=== PATIENT | female | born 1955 | race Hispanic/Latino ===

== ENCOUNTER 2018-03-07 13:40 | Emergency (ER) | payer OTHER ==
[2018-03-07] MEDS ORDERED: LIDOCAINE HCL 1% 20 ML VIAL ONE (14:34)
[2018-03-07] MEDS ORDERED: BUPIVACAINE/PF 0.5% 30ML VIAL ONE (14:34)
[2018-03-07] MEDS ORDERED: ONDANSETRON ODT 4 MG TAB ONE (14:35)
[2018-03-07] MEDS ORDERED: MORPHINE SULFATE 8 MG/ML VIAL ONE (14:35)
== END 2018-03-07 15:47 | disposition home or self-care (01) ==
LOC: EDH 13:40
DX: S52.591A Other fractures of lower end of right radius, initial encounter for closed fracture (principal); W18.39XA Other fall on same level, initial encounter; Y93.89 Activity, other specified; Y92.098 Other place in other non-institutional residence as the place of occurrence of the external cause; Y99.8 Other external cause status
CPT/HCPCS: 25605; 73100; 73110; 96372; 99284; J2270; J3490

== ENCOUNTER → 2018-10-07 | Outpatient (CLI) | payer OTHER ==
--- NOTE | 2018-10-07 12:07 | NUR ---
MBSS COMPLETE. -S/S OF ASPIRATION. RECOMMEND REGULAR, THIN LIQUID DIET; PILLS WHOLE WITH LIQUIDS. ENT AND GI CONSULT RECOMMENDED. PATIENT INFORMATION: Pt IS A 63 Y.O. FEMALE REFERRED FOR AN MBSS SECONDARY TO C/O DIFFICULTY SWALLOWING LIQUIDS WITH COUGHING DURING MEAL TIMES. Pt REPORTS THAT SHE FEELS SOMETHING STUCK IN HER THROAT WHEN SHE EATS. Pt WAS NOTED TO HAVE HOARSE VOCAL QUALITY DURING THE EVALUATION. Pt REPORTS THAT PEOPLE HAVE A DIFFICULT TIME UNDERSTANDING HER. VOCAL INTENSITY WAS ALSO NOTED TO BE LOW. ENT CONSULT RECOMMENDED. Pt REPORTS NO SIGNIFICANT MEDICAL HISTORY AT THIS TIME. MBSS INTERPRETATION: SWALLOW FUNCTION AND EFFICIENCY WITHIN FUNCTIONAL LIMITS. ORAL MOTOR STRENGTH, COORDINATION, AND ROM WITHIN FUNCTIONAL LIMITS. LARYNGEAL ELEVATION/EXCURSION STRONG WITH TIMELY PHARYNGEAL RESPONSE. NO OVERT SIGNS OR SYMPTOMS OF ASPIRATION PRESENT DURING THE MBSS. OBSERVATION: OPAQUE AREA IN UPPER AIRWAY. A-P VIEW: Pt WITH OBVIOUS BOLUS REFLUX IN THE MID AND LOWER 1/3 PORTIONS OF TH ESOPHAGUS. Pt WITH COUGH RESPONSE AFTER THE SWALLOW. GI CONSULT RECOMMENDED. TRIALS: 1. TSP PUREED: GOOD 2. TSP PUDDING: GOOD 3. MIXED TEXTURE: GOOD 4. THIN LIQUIDS VIA CONSECUTIVE CUP SIP: GOOD 5. THIN LIQUIDS VIA CONSECUTIVE CUP SIP: GOOD 6. A-P PUDDING: OBSERVATIONS DESCRIBED ABOVE. RECOMMENDATIONS: 1. REGULAR TEXTURE, THIN LIQUID DIET; PILLS WHOLE WITH LIQUIDS. 2. COMPENSATORY STRATEGIES (PROPHYLAXIS): *SEATED AT 90 DEGREE ANGLE *REMAIN UPRIGHT 30 MINUTES AFTER MEAL TIMES 3. GI CONSULT DUE TO REFLUX OF BOLUS DURING MBSS 4. ENT CONSULT SECONDARY TO CHANGE IN VOCAL QUALITY. Pt PROVIDED WITH WRITTEN HANDOUT OF RESULTS AND RECOMMENDATIONS. ALL QUESTIONS ANSWERED AT THIS TIME. PT VERBALIZED UNDERSTANDING AND COMPLIANCE WITH RECOMMENDATIONS. G-CODES SWALLOWING: [id number] Addendum: 10/07/18 at 1216 by [facility] Amended: Links added.
== END | disposition home or self-care (01) ==
LOC: RAH 09:29
PROVIDERS: ATTEND Family Medicine
DX: E04.2 Nontoxic multinodular goiter (principal); K21.9 Gastro-esophageal reflux disease without esophagitis; R13.10 Dysphagia, unspecified; R49.9 Unspecified voice and resonance disorder
CPT/HCPCS: 74230; 76536; 92611; G8996; G8997; G8998

== ENCOUNTER → 2020-11-18 | Outpatient (CLI) | payer OTHER | END | disposition home or self-care (01) | LOC: RAH 07:20 | PROVIDERS: ATTEND Family Medicine | DX: Z12.31 Encounter for screening mammogram for malignant neoplasm of breast (principal) | CPT/HCPCS: 77067 ==

== ENCOUNTER → 2021-08-20 | Outpatient (CLI) | payer OTHER ==
[~2021-08-20] VITALS: Ht 152.4 cm; Wt 72.1 kg
[~2021-08-20] MED LIST: REGADENOSON 0.4 MG/5 ML PF SYG IVP SCH
== END ==
LOC: SHCH 09:34
PROVIDERS: ATTEND Internal Medicine Cardiovascular Disease
DX: R07.9 Chest pain, unspecified (principal)
CPT/HCPCS: 78452; 93017; 96374; A9500 ×2; J2785

== ENCOUNTER → 2025-01-24 | Outpatient (CLI) | payer OTHER ==
--- NOTE | 2025-01-26 14:50 | HMCIMG ---
DIGITAL BILATERAL SCREENING MAMMOGRAM Technique: The digital mammographic examination of both breasts in craniocaudal and mediolateral oblique views along with CAD was obtained. History: This is a 69 years year-old female 0, para0 Ab0. Patient has no family history of breast cancer. Patient has no complaint Reference:Prior mammogram from 01/29/2023, 05/22/2019 and 11/17/2017 are available for comparison.. Breast composition: Breast composition B: There are scattered areas of fibroglandular density. Finding: The digital mammographic examination of both breasts in craniocaudal and mediolateral oblique view along with CAD demonstrates both breasts demonstrate mostly involutional fatty changes is asymmetry with residual fibroglandular stromal left breast which was seen before and appears to be unchanged.. There is no evidence of any dendritic mass, cluster microcalcification or architectural distortion. The retromammary fat appears to be normal. IMPRESSION: Unchanged from prior mammography. NO RADIOGRAPHIC EVIDENCE OF MALIGNANT CHANGES. WE WOULD RECOMMEND ANNUAL FOLLOW UP WITH TOMOSYNTHESIS UNLESS OTHERWISE CLINICALLY INDICATED. FINAL ASSESSMENT: ACR: BI-RAD- 2. Benign: Also a negative assessment; finding(s) benign abnormalities. Management: Routine mammography screening. Likelihood of Cancer: Essentially 0% likelihood of malignancy. NOTE: IF A WORK-UP OF THIS PATIENT LEADS TO A BIOPSY, PLEASE FORWARD A COPY OF THE PATHOLOGY REPORT TO OUR OFFICE REQUIRED BY [facility] JANUARY 19, 1994. A NEGATIVE MAMMOGRAM SHOULD NOT PRECLUDE BIOPSY OF A CLINICALLY PALPABLE SUSPICIOUS MASS, 10% OF BREAST CANCERS ARE MAMMOGRAPHICALLY OCCULT. THIS MAMMOGRAPHY FACILITY IS FULLY ACCREDITED BY THE [employer]OD AND [employer]UG [employer]ATION (FDA). THANK YOU FOR THIS REFERRAL.
== END | disposition home or self-care (01) ==
LOC: RAH 09:31
PROVIDERS: ATTEND Nurse Practitioner
DX: Z12.31 Encounter for screening mammogram for malignant neoplasm of breast (principal)
CPT/HCPCS: 77067